=== PATIENT | male | born 1955 | race Caucasian/White ===

== ENCOUNTER 2018-09-08 05:46 | Day surgery (SDC) | payer OTHER, BC ==
[~2018-09-08] VITALS: Ht 179.1 cm; Wt 113.4 kg
[~2018-09-08 05:46] MED LIST: MUCINEX D 12001 TER PO; MUCINEX DM 30 M1 TE1; NORVASC 5MG5 MG/TAB PO; PRAVACHOL 40MG40 MG PO; PROTONIX 40MG T40 MG PO
[2018-09-08 06:16] VITALS: BP 147/96; PULSE 93; TEMP 98.5
[2018-09-08] MEDS ORDERED: FLONASEALLERGY NS (06:24)
[2018-09-08 07:25] VITALS: BP 121/76; PULSE 72; TEMP 97.4
[2018-09-08 07:30] VITALS: BP 126/78; PULSE 87
[2018-09-08 07:45] VITALS: BP 115/69; PULSE 91
[2018-09-08 08:00] VITALS: BP 115/72; PULSE 75
== END 2018-09-08 08:15 | disposition home or self-care (01) ==
LOC: SDCO 05:46
DX: Z12.11 Encounter for screening for malignant neoplasm of colon (principal); K62.1 Rectal polyp; I10 Essential (primary) hypertension; E78.00 Pure hypercholesterolemia, unspecified; Z88.2 Allergy status to sulfonamides; Z80.0 Family history of malignant neoplasm of digestive organs; Z83.71 Family history of colonic polyps
CPT/HCPCS: OP; J2250; J3010; J7030